=== PATIENT | female | born 1960 | race Caucasian/White ===

== ENCOUNTER 2017-05-01 08:54 | Emergency (ER) | payer OTHER, SELFPAY ==
[2017-05-01] MEDS ORDERED: Lidocaine 5% Patch TD STA (09:47)
[2017-05-01] MEDS ORDERED: Lidocaine 5% Patch TD ONE (10:16)
--- NOTE | 2017-05-01 10:26 | C.PDOC ---
History Of Present Illness A 57 year old female, who denies any significant past medical history, presents to the emergency department for a fall, which occurred 4 days ago. The patient reports she missed a step and landed on her buttocks and left arm. The patient states she took Tylenol and Motrin, which seemed to help, but today the patient states the pain is much stronger. She notes the pain radiates from her lower lumbar to her left buttock. She is able to walk and put weight on it. The patient denies any trauma to her head and neck. She denies any chest pain, shortness of breath, fever, nausea, vomiting, diarrhea, or any other complaints at this time. Time Seen by Provider: 05/01/17 09:15 Chief Complaint (Nursing): Back Pain History Per: Patient History/Exam Limitations: no limitations Onset/Duration Of Symptoms: Days (x 4 days) Current Symptoms Are (Timing): Worse Severity: Mild Pain Scale Rating Of: 8 Previous Symptoms: Back Pain. denies: Neck Pain Past Medical History Reviewed: Historical Data, Nursing Documentation, Vital Signs Vital Signs: Last Vital Signs Temp 97.8 F 05/01/17 11:24 Pulse 74 05/01/17 11:24 Resp 18 05/01/17 11:24 BP 148/90 05/01/17 11:24 Pulse Ox 97 05/01/17 11:24 Family History: States: No Known Family Hx - Social History Hx Alcohol Use: No Hx Substance Use: No - Immunization History Hx Tetanus Toxoid Vaccination: No Hx Influenza Vaccination: No Hx Pneumococcal Vaccination: No Review Of Systems Except As Marked, All Systems Reviewed And Found Negative. Constitutional: Negative for: Fever Cardiovascular: Negative for: Chest Pain Respiratory: Negative for: Shortness of Breath Musculoskeletal: Positive for: Back Pain (radiates from lower lumbar to left buttock). Negative for: Neck Pain Physical Exam - Physical Exam Appears: Well, Non-toxic, No Acute Distress Skin: Normal Color, Warm, Dry Head: Atraumatic, Normacephalic Eye(s): bilateral: Normal Inspection, PERRL, EOMI Nose: Normal Throat: Normal Neck: Normal Cardiovascular: Rhythm Regular Respiratory: Normal Breath Sounds Gastrointestinal/Abdominal: Normal Exam Back: No CVA Tenderness, No Vertebral Tenderness, No Decreased ROM, No Paraspinal Tenderness, Other (tenderness and bruising on the left sided lower back) Extremity: Normal ROM, Other (swelling and bruising volar aspect of forearm) ED Course And Treatment - Laboratory Results Result Diagrams: 05/01/17 13:15 05/01/17 13:15 Medical Decision Making Medical Decision Making: Treatment Plan: -- Acetaminophen, Ibuprofen, Lidocaine 5% -- Urinalysis Progress Notes: -- Patient was positive for hematuria during urinalysis, patient will need to receive a cat scan to rule out renal trauma. Disposition Counseled Patient/Family Regarding: Studies Performed, Diagnosis - Disposition Referrals: [facility] [Outside] Disposition: HOME/ ROUTINE Disposition Time: 14:29 Condition: GUARDED Additional Instructions: Siga con brown doctor o en la clinica. Regrese a la blossom de emergencia con cualquier otro problema. Prescriptions: Ibuprofen [Motrin] 600 mg PO TID #15 tab traMADol/Acetaminophen [Ultracet 37.5/325 mg] 1 tab PO TID PRN #15 tab PRN Reason: pain Instructions: Rib Fracture (ED), Contusion in Adults (DC) Forms: [employer] (Tristanian) - POA Present On Arrival: None - Clinical Impression Clinical Impression: Low back pain, Rib fracture - Scribe Statement The provider has reviewed the documentation as recorded by the Scribe Deborah Darden All medical record entries made by the Scribe were at my direction and personally dictated by me. I have reviewed the chart and agree that the record accurately reflects my personal performance of the history, physical exam, medical decision making, and the department course for this patient. I have also personally directed, reviewed, and agree with the discharge instructions and disposition.
[2017-05-01 11:08] LABS: RBC URINE 2 /hpf (0-3); URINE BACTERIA RARE (<OCC); URINE BILIRUBIN NEGATIVE (NEGATIVE); URINE BLOOD 2+ (NEGATIVE); URINE COLOR Yellow (YELLOW); URINE GLUCOSE (UA) NORMAL (Normal); URINE KETONE NEGATIVE (NEGATIVE); URINE LEUKOCYTE ESTERASE TRACE Leu/uL (Negative); URINE PROTEIN NEGATIVE (NEGATIVE); URINE UROBILINOGEN NORMAL mg/dL (0.2-1.0); WBC URINE 3 /hpf (0-5)
[2017-05-01 11:25] VITALS: RESP 18
[2017-05-01 13:23] LABS: BASO % 0.9 % (0.0-2.0); EOS # 0.1 K/uL (0.0-0.7); EOS % 1.3 % (0.0-4.0); HEMATOCRIT 45.7 % (34.0-47.0); LYMPH # 1.7 K/uL (1.0-4.3); LYMPH % 33.5 % (20.0-40.0); MEAN CELL VOLUME 92.1 fL (81.0-99.0); MEAN CORPUSCULAR HEMOGLOBIN 30.8 pg (27.0-31.0); MEAN CORPUSCULAR HGB CONC 33.4 g/dL (33.0-37.0); MONO # 0.4 K/uL (0.0-0.8); MONO % 7.4 % (0.0-10.0); NRBC % 0.1 % (0.0-2.0); RED CELL DISTRIBUTION WIDTH 13.6 % (11.5-14.5); WHITE BLOOD COUNT 5.1 K/uL (4.8-10.8)
[2017-05-01 13:48] LABS: BLOOD UREA NITROGEN 17 mg/dL (7-17); CARBON DIOXIDE 28 mmol/L (22-30); CHLORIDE 103 mmol/L (98-107); GFR AFRICAN-AMERICAN > 60; GLUCOSE,RANDOM 83 mg/dL (65-105); SODIUM 143 mmol/L (132-148)
--- NOTE | 2017-05-01 14:14 | CT ---
PROCEDURE: CT Abdomen and Pelvis without intravenous contrast HISTORY: abd pain COMPARISON: None. TECHNIQUE: Axial and reformatted coronal and sagittal CT images of the abdomen and pelvis were obtained without IV or oral contrast administration.. Contrast Dose: 0 Radiation dose: Total exam DLP = 513.5 mGy-cm. This CT exam was performed using one or more of the following dose reduction techniques: Automated exposure control, adjustment of the mA and/or kV according to patient size, and/or use of iterative reconstruction technique. FINDINGS: LOWER THORAX: There is a trace left pleural effusions seen. LIVER: Unremarkable. No gross lesion or ductal dilatation. GALLBLADDER AND BILE DUCTS: Unremarkable. PANCREAS: Unremarkable. No gross lesion or ductal dilatation. SPLEEN: Unremarkable. ADRENALS: Unremarkable. No mass. KIDNEYS AND URETERS: 2 millimeter nonobstructing calculus at the upper pole of the left kidney. No evidence of hydronephrosis or hydroureter. VASCULATURE: Unremarkable. No aortic aneurysm. BOWEL: Unremarkable. No obstruction. No gross mural thickening. APPENDIX: Unremarkable. Normal appendix. PERITONEUM: Unremarkable. No free fluid. No free air. LYMPH NODES: Unremarkable. No enlarged lymph nodes. BLADDER: Unremarkable. REPRODUCTIVE: Unremarkable. BONES: There is no acute nondisplaced fracture at the posterior aspect of the left 11 rib. OTHER FINDINGS: None. IMPRESSION: Acute nondisplaced fracture at the posterior aspect of the left 11th rib. Trace left pleural effusion of uncertain etiology. 2 millimeter nonobstructing calculus at the upper pole of the left kidney. Otherwise no evidence of acute pathology this suboptimal noncontrast study.
[2017-05-01 14:46] VITALS: BP 160/80; PULSE 62; TEMP 97.7; O2SAT 96
== END 2017-05-01 14:46 | disposition home or self-care (01) ==
LOC: C.ER 08:54
DX: S22.32XA Fracture of one rib, left side, initial encounter for closed fracture (principal); W10.8XXA Fall (on) (from) other stairs and steps, initial encounter; Y93.89 Activity, other specified; Y92.89 Other specified places as the place of occurrence of the external cause; M54.5 Low back pain